=== PATIENT | female | born 1985 | race Caucasian/White ===

== ENCOUNTER → 2021-06-10 | Outpatient (CLI) | payer BC ==
--- NOTE | 2021-06-10 14:29 | Diagnostic Imaging Report ---
INDICATION: Anatomy survey. TECHNIQUE: Multiple real-time grayscale images were obtained over the gravid uterus. COMPARISON: None FINDINGS: CLINICAL DATES: Gestational age 20 weeks, 3 days, with an TIANNA of 10/25/2021 Number: Single live intrauterine Presentation: Transverse Placenta: Anterior. There is partial placental previa. Amniotic Fluid: MORA is visually within normal limits. However, no measurements were provided in regards the amniotic fluid. Heart Rate: 134 bpm Cerebellum: visualized Lateral ventricles: visualized Cavum septum pellucidum: visualized Nasal Bone: Not well visualized Face: Not well visualized Stomach: visualized Kidneys: visualized Bladder: visualized Three vessel cord: visualized Cord insertion: visualized 4 chamber heart: visualized outflow tracts: Not visualized Spine, upper: Not well visualized Spine, lower: Not well visualized Upper extremities: visualized Lower extremities: visualized Hands: Visualized, however not all fingers are well seen. Feet: Visualized, however not all toes are well seen. The cervical length measures 10 cm without evidence of funneling. Biometrical measurements are as follows: Biparietal 4.85 cm, age 20 weeks 5 days. Head circumference 18.21 cm, age 20 weeks 5 days. Abdominal circumference 14.65 cm, age 20 weeks 0 days. Femur length 3.42 cm, age 20 weeks 6 days. Sonographic estimate age: 20 weeks 4 days. Sonographic estimated date of delivery: 10/24/2021. Estimated Weight: 349 gm (+/- 51 gm). LMP percentile: 41%. IMPRESSION: 1. Single live intrauterine at approximately 20 weeks, 4 days, with an TIANNA of 10/24/2021. These are within range clinical dates. 2. The face, nasal bone, spine, and outflow tracts are not well visualized due to position. The remainder of the anatomy is seen and has a normal appearance. Recommend follow-up as indicated. 3. Low-lying placenta with partial placental previa. Recommend attention on follow-up. Dictated by: Dictated on workstation # [id number]
== END ==
LOC: RAD 12:52
PROVIDERS: ATTEND Obstetrics & Gynecology
DX: O44.22 Partial placenta previa NOS or without hemorrhage, second trimester (principal); Z3A.20 20 weeks gestation of pregnancy
CPT/HCPCS: 76805

== ENCOUNTER 2021-10-22 02:49 | Inpatient (IN) | payer BC ==
[2021-10-22] VITALS (49 sets, daily range): BP systolic 92–164; BP diastolic 52–121
[~2021-10-22] VITALS: Ht 177.8 cm; Wt 133.4 kg
--- NOTE | 2021-10-22 07:35 | History & Physical-OB ---
OB - Chief Complaint & HPI Date/Time Date of Admission: Date of Admission: Oct 22, 2021 at 06:32 Date seen by a Provider: Oct 22, 2021 Time Seen by a Provider: 07:30 Chief Complaint/History OB-Reason for Admission/Chief: Induction of Labor Hx : 4 Hx Para: 3 Expected Date of Delivery: Oct 25, 2021 Gestational Age in Weeks: 39 Gestational Age in Days: 4 Admission Nurse Assessment Rev: Yes Allergies and Home Medications Patient Home Medication List Home Medication List Reviewed: Yes OB - History Hx of Present Care: Yes Ultrasounds: Normal mid trimester US Obstetrical Complications: None Medical Complications: None Patient Past Medical History n/a OB - Admission Exam Physical Exam HEENT: NCAT Heart: Rhythm Normal Lungs: Clear Abdomen: Gravid Extremities: Normal Reflexes: Normal Cervical Dilatation: 3cm Effacement: 75% Station: -1 Membranes: Intact Heart Rate: 130's Accelerations: Accelerations Present Decelerations: No Decelerations Short Term Variability: Present Usp Variability: Average (6-25) Contractions on Admission: 6-10 Minutes Apart Intensity: Mild Shields Scoring Tool (Modified) Dilation (cm): 3-4cm (2) Effacement (%): 51-79% (2) Descent/Station: -1,0 (2) Cervix Consistency: Soft (2) Cervix Position: Anterior (2) Add 1 point for: Each previous vaginal delivery (1) Shields Score: 11 OB - Assessment/Plan/Diagnosis Assessment Assessment: induction of labor Admission Dx 36 yo @ 39 weeks Elective IOL AMA TOLAC GBS neg Admission Status: Inpatient Order (span 2 midnights) Reason for Inpatient Admission: IOL at 39 weeks Plan Induction Method: DONATO ONEIL DO Oct 22, 2021 07:35
[2021-10-22] MEDS ORDERED: OXYTOCIN PRE-MIX DRIP 500 ML IV SCH ×3 (07:45→18:00)
[2021-10-22 08:25] LABS: BASOPHILS % (AUTO) 1 % (0-10); EOSINOPHILS % (AUTO) 0 % (0-10); HEMATOCRIT 36 % (35-52); HEMOGLOBIN 12.3 g/dL (11.5-16.0); LYMPHOCYTES # (AUTO) 0.7 10^3/uL (1.0-4.0); LYMPHOCYTES % (AUTO) 8 % (12-44); MEAN CORPUSCULAR HEMOGLOBIN 33 pg (25-34); MEAN CORPUSCULAR HGB CONC 34 g/dL (32-36); MEAN CORPUSCULAR VOLUME 95 fL (80-99); MEAN PLATELET VOLUME 11.2 fL (9.0-12.2); MONOCYTES # (AUTO) 0.8 10^3/uL (0.0-1.0); MONOCYTES % (AUTO) 10 % (0-12); NEUTROPHILS # (AUTO) 6.6 10^3/uL (1.8-7.8); NEUTROPHILS % (AUTO) 80 % (42-75); PLATELET COUNT 227 10^3/uL (130-400); WHITE BLOOD COUNT 8.3 10^3/uL (4.3-11.0)
[2021-10-22] MEDS ORDERED: D5 LR IV SOLUTION 1,000 ML IV SCH (08:30)
[2021-10-22] MEDS ORDERED: fentaNYL 2 mcg/ml BUPIVA 0.125 100 ML ONE (08:41)
[2021-10-22] MEDS ORDERED: D5 LR IV SOLUTION 1,000 ML IV ONE (08:41)
[2021-10-22] MEDS: EPIDURAL (fentaNYL 2 MCG/ML BUPIVA 0.125%)100 ML BAG EPI SCH ×2 (09:05→16:19)
[2021-10-22] MEDS ORDERED: ONDANSETRON 4 MG/2 ML (SDV) Z0FRAN IV PRN (09:15)
[2021-10-22] MEDS ORDERED: NALOXONE 0.4 MG/ML 1 ML (NARCAN) VIAL IV PRN ×3 (09:15→18:00)
[2021-10-22] MEDS ORDERED: METOCLOPRAMIDE INJ 10 MG/2 ML (REGLAN) IV PRN (09:15)
[2021-10-22] MEDS ORDERED: LACTATED RINGERS 1,000 ML IV SCH (09:15)
[2021-10-22] MEDS ORDERED: diphenhydrAMINE 50 MG/ML INJ (BENADRYL) IV PRN (09:15)
[2021-10-22] MEDS ORDERED: CATHETER FLUSH 10 ML SYR IV SCH ×2 (14:00→22:00)
--- NOTE | 2021-10-22 17:56 | OB Labor & Delivery Record ---
L&D History Date of Service Date of Service: Oct 22, 2021 History Expected Date of Delivery: Oct 25, 2021 Gestational Age in Weeks: 39 Hx : 4 Hx Para: 3 Complications Events: Routine care Operative Indications (Cesarea: N/A-Vaginal Delivery Intrapartal Events: None, Ineffective Pushing L&D Stage1 Stage One Onset of Labor - Date: Oct 22, 2021 Monitors and Tracing Monitor Mode: External Heart Rate: 135 Monitor Accelerations: Uniform Monitor Decelerations: Variable Station: -2 Snf Variability: Average (6-10) Short Term Variability: Present Presentation: Vertex Vital Signs VS - Last 72 Hours, by Label 10/22/21 10/22/21 10/22/21 10/22/21 07:08 08:00 08:15 08:30 Temp 36.8 Pulse 120 96 96 96 Resp 18 18 18 18 B/P (MAP) 135/77 (96) 124/69 (87) 111/74 (86) Pulse Ox 96 O2 Delivery Room Air Room Air Room Air Room Air 10/22/21 10/22/21 10/22/21 10/22/21 08:45 08:55 09:00 09:05 Pulse 105 106 83 87 Resp 18 18 18 18 B/P (MAP) 122/77 (92) 132/92 (105) 114/62 (79) 115/71 (86) Pulse Ox 99 99 97 O2 Delivery Room Air Room Air Room Air Room Air 10/22/21 10/22/21 10/22/21 10/22/21 09:15 09:20 09:30 09:35 Pulse 82 91 63 83 Resp 18 18 18 18 B/P (MAP) 92/52 (65) 100/63 (75) 154/121 (132) 110/61 (77) Pulse Ox 96 99 95 98 O2 Delivery Room Air Room Air Room Air Room Air 10/22/21 10/22/21 10/22/21 10/22/21 09:40 09:45 10:00 10:15 Pulse 88 80 94 93 Resp 18 18 18 18 B/P (MAP) 101/59 (73) 105/61 (76) 110/69 (83) Pulse Ox 97 97 98 99 O2 Delivery Room Air Room Air Room Air Room Air 10/22/21 10/22/21 10/22/2110/22/22 10:30 10:45 11:00 11:15 Pulse 87 85 98 90 Resp 18 18 18 18 B/P (MAP) 112/74 (87) 124/74 (91) 129/78 (95) 119/78 (92) Pulse Ox 97 97 97 98 O2 Delivery Room Air Room Air Room Air Room Air 10/22/21 10/22/21 10/22/21 10/22/21 11:30 11:45 12:00 12:03 Temp 36.9 Pulse 93 101 96 Resp 18 18 18 B/P (MAP) 124/59 (80) 134/70 (91) 117/61 (79) Pulse Ox 97 99 98 O2 Delivery Room Air Room Air Room Air 10/22/21 10/22/21 10/22/21 10/22/21 12:15 12:30 12:45 13:00 Pulse 107 112 110 104 Resp 18 18 18 18 B/P (MAP) 115/72 (86) 119/72 (88) 109/63 (78) 107/70 (82) Pulse Ox 99 99 97 97 O2 Delivery Room Air Room Air Room Air Room Air 10/22/21 10/22/21 10/22/21 10/22/21 13:15 13:30 13:45 14:00 Pulse 112 95 104 103 Resp 18 18 18 18 B/P (MAP) 106/60 (75) 127/80 (96) 109/72 (84) 114/76 (89) Pulse Ox 97 98 99 99 O2 Delivery Room Air Room Air Room Air Room Air 10/22/21 10/22/21 10/22/21 10/22/21 14:15 14:30 14:45 15:00 Pulse 95 100 112 105 Resp 18 18 18 18 B/P (MAP) 127/73 (91) 129/76 (93) 131/93 (106) 133/83 (100) Pulse Ox 99 98 98 98 O2 Delivery Room Air Room Air Room Air Room Air 10/22/21 10/22/21 10/22/21 10/22/21 15:15 15:30 15:45 16:00 Pulse 95 108 122 112 Resp 18 18 18 18 B/P (MAP) 132/81 (98) 147/90 (109) 136/88 (104) 134/89 (104) Pulse Ox 98 97 98 O2 Delivery Room Air Room Air Room Air Room Air 10/22/21 10/22/21 16:15 16:30 Pulse 117 96 Resp 18 18 B/P (MAP) 134/89 (104) 143/92 (109) O2 Delivery Room Air Room Air Rupture of Membranes Spontaneous Ruture of Membrane: No Amniotic Membrane Rupture Time: 07 Amniotic Membrane Fluid Desc.: Clear Vaginal Bleeding Description: Normal Show Progress/Notes Patient admitted for IOL, AROM performed and pitocin augmentation used to progress patient after epidural is placed. She progressed to complete and +2 station. L&D Stage2 Stage Two Stage II Date: Oct 22, 2021 Monitors and Tracing Monitor Mode: External Heart Rate: 135 Monitor Accelerations: None Monitor Decelerations: Variable Pleater Hand Variability: Average (6-10) Short Term Variability: Present Position: Right Occiput Anterior Presentation: Vertex Cord Descript/Complications Cord Vessel Description: 3 Vessels Complications Due to no change in station of +3 after 30 min of pushing, low vacuum extraction done. Kiwi cup placed over flexion point on head, with next push 50 mmHg applied using handpiece. And gentle extension of the head guided with the vacuum, over intact perineum where the vacuum suction is released. Delivery Type Infant Delivery Method: Low Vacuum Extraction Anterior Shoulder: Right Episiotomy/Perineal Laceration Laceraction(s)/Extensions: No Condition of Infant Delivery 1 minute Comment: 8 5 minute Comment: 9 Notes Live male weight pending. Condition of Infant Condition of : Living Exam: No Observed Abnormalities Resuscitation Resuscitation: N/A - Spontaneous Resp L&D Stage3 Stage Three Stage III Date: Oct 22, 2021 Pictocin Pitocin Administration mu/min: 14 Pitocin ml/hr: 14 Pitocin Administration Comment: 30 mu wide open after delivery of placenta Placenta Delivery Placenta Delivery: Spontaneous Delivery Summary Summary Estimated blood loss (mL): 250 Attending at delivery: Donato Zhang DO Condition of Delivery Examined: Cervix Examined, Uterus Explored Post Hemorrhage: No Condition of Mother stable Condition of Infant (s) stable DONATO ZHANG DO Oct 22, 2021 17:56
--- NOTE | 2021-10-22 17:57 | Discharge Inst-Women's Service ---
Discharge Inst-Women's Serv Depart Medication/Instructions New, Converted or Re-Newed RX: Transmitted to Pharmacy Final Diagnosis PPD 2 VAVD Problems Reviewed?: Yes Consults/Follow Up Additional Follow Up: Yes Orders/Referrals Dr. Zhang in 6 weeks Activity Activity: Activity as Tolerated Driving Instructions: No Driving for 1 Week NO SMOKING: NO SMOKING Nothing Inside Vagina: No Douching, No [place], No Tampons Diet Discharge Diet: No Restrictions Symptoms to Report to : Bleeding Excessive, Pain Increased, Fever Over 101 Degrees F, Vaginal Bleeding Increase, Questions/Concerns For Any Problems or Questions: Contact Your Physician DONATO ZHANG DO Oct 22, 2021 17:57
[2021-10-22] MEDS ORDERED: ACHD5005 PO (17:58)
[2021-10-22] MEDS ORDERED: DOCU100C37 PO (17:58)
[2021-10-22] MEDS ORDERED: IBUP-844 PO (17:58)
[2021-10-22] MEDS ORDERED: DIBUCAINE 1% OINTMENT 30 GM TUBE TOP PRN (18:00)
[2021-10-22] MEDS ORDERED: MEASLES,MUMPS,RUBELLA 1 EA INJ SQ ONE (18:00)
[2021-10-22] MEDS ORDERED: HYDROcodone/APAP 5 MG/325 MG (LORTAB) TAB PO PRN (18:00)
[2021-10-22] MEDS ORDERED: TETANUS,DIPTH,PERTUSS P/F (BOOSTRIX) 0.5 ML VIAL IM ONE (18:00)
[2021-10-22] MEDS ORDERED: BENZOCAINE/MENTHOL (DERMOPLAST) 56 ML CAN TP PRN (18:00)
[2021-10-22] MEDS ORDERED: WITCH HAZEL(TUCKS) 40 EA JAR TOP PRN (18:00)
[2021-10-22] MEDS: IBUPROFEN 600 MG (MOTRIN) TAB PO SCH (20:52)
[2021-10-22] MEDS: DOCUSATE SODIUM 100 MG (COLACE) CAP PO SCH (20:52)
[2021-10-23 00:10] VITALS: BP 107/62
[2021-10-23 04:11] VITALS: BP 117/59
[2021-10-23] MEDS: IBUPROFEN 600 MG (MOTRIN) TAB PO SCH ×3 (04:11→14:29)
[2021-10-23 06:16] LABS: BASOPHILS # (AUTO) 0.1 10^3/uL (0.0-0.1); BASOPHILS % (AUTO) 1 % (0-10); EOSINOPHILS % (AUTO) 0 % (0-10); HEMATOCRIT 34 % (35-52); HEMOGLOBIN 11.4 g/dL (11.5-16.0); LYMPHOCYTES # (AUTO) 1.5 10^3/uL (1.0-4.0); LYMPHOCYTES % (AUTO) 14 % (12-44); MEAN CORPUSCULAR HEMOGLOBIN 32 pg (25-34); MEAN CORPUSCULAR HGB CONC 33 g/dL (32-36); MEAN CORPUSCULAR VOLUME 97 fL (80-99); MEAN PLATELET VOLUME 11.1 fL (9.0-12.2); MONOCYTES # (AUTO) 0.8 10^3/uL (0.0-1.0); MONOCYTES % (AUTO) 7 % (0-12); NEUTROPHILS # (AUTO) 8.4 10^3/uL (1.8-7.8); NEUTROPHILS % (AUTO) 77 % (42-75); PLATELET COUNT 202 10^3/uL (130-400); WHITE BLOOD COUNT 10.8 10^3/uL (4.3-11.0)
[2021-10-23] MEDS ORDERED: PRENATAL VITAMIN 1 EA TAB PO SCH (07:00)
--- NOTE | 2021-10-23 08:58 | Anesthesia-Regional Post-Op ---
Regional Patient Condition Mental Status: Alert, Oriented x3 Circulation: Same as Pre-Op Headache: Absent Sensation: Full Recovery Motor Block: Absent Post Op Complications Complications None Follow Up Care/Instructions Patient Instructions None needed. Anesthesia/Patient Condition Patient is doing well, no complaints, stable vital signs, no apparent adverse anesthesia problems. No complications reported per nursing. DAVI STEPHENSON CRNA Oct 23, 2021 08:58
[2021-10-23] MEDS ORDERED: FERROUS SULF 325 MG (IRON) TAB PO SCH (09:00)
[2021-10-23] MEDS: DOCUSATE SODIUM 100 MG (COLACE) CAP PO SCH (09:20)
[2021-10-23 09:30] VITALS: BP 115/67
--- NOTE | 2021-10-23 11:51 | Postpartum Progress Note ---
Note Note Day # 1 Subjective: Patient is without complaints. Ambulating, voiding. Tolerating a regular diet without nausea or vomiting. Normal lochia. Pain is well controlled with oral pain medications. Breast feeding. Patient would like to be discharged to home this evening. Objective: Physical Exam: General - Alert and oriented, no apparent distress Abdomen - Soft, appropriately tender to palpation, non-distended, fundus firm at umbilicus Extremities - no edema, negative Celestina's bilaterally Assessment: Post- day # 1, status post . Recovering well, hemodynamically stable Acute blood loss anemia Plan: Routine care. Encourage breast feeding. Encourage ambulation. Ferrous sulfate supplementation. Plan for discharge this evening, pending baby's DC Vitals - Labs Vital Signs - I&O Vital Signs Date Time Temp Pulse Resp B/P (MAP) Pulse Ox O2 Delivery O2 Flow Rate FiO2 10/23/21 09:30 36.4 89 18 115/67 (83) 89 Room Air 10/23/21 04:11 36.4 78 18 117/59 (78) 98 Room Air 10/23/21 00:10 36.4 80 18 107/62 (77) 98 Room Air 10/22/21 20:30 36.8 99 18 140/65 (90) 98 Room Air 10/22/21 18:30 100 18 136/71 (92) Room Air 10/22/21 18:15 37.1 86 18 133/82 (99) Room Air 10/22/21 18:00 102 18 146/81 (102) Room Air 10/22/21 17:45 96 18 128/78 (95) Room Air 10/22/21 17:30 114 18 136/83 (100) Room Air 10/22/21 17:15 110 18 164/74 (104) Room Air 10/22/21 17:00 118 18 129/83 (98) Room Air 10/22/21 16:45 97 18 137/89 (105) Room Air 10/22/21 16:30 96 18 143/92 (109) Room Air 10/22/21 16:15 117 18 134/89 (104) Room Air 10/22/21 16:00 112 18 134/89 (104) Room Air 10/22/21 15:45 122 18 136/88 (104) 98 Room Air 10/22/21 15:30 108 18 147/90 (109) 97 Room Air 10/22/21 15:15 95 18 132/81 (98) 98 Room Air 10/22/21 15:00 105 18 133/83 (100) 98 Room Air 10/22/21 14:45 112 18 131/93 (106) 98 Room Air 10/22/21 14:30 100 18 129/76 (93) 98 Room Air 10/22/21 14:15 95 18 127/73 (91) 99 Room Air 10/22/21 14:00 103 18 114/76 (89) 99 Room Air 10/22/21 13:45 104 18 109/72 (84) 99 Room Air 10/22/21 13:30 95 18 127/80 (96) 98 Room Air 10/22/21 13:15 112 18 106/60 (75) 97 Room Air 10/22/21 13:00 104 18 107/70 (82) 97 Room Air 10/22/21 12:45 110 18 109/63 (78) 97 Room Air 10/22/21 12:30 112 18 119/72 (88) 99 Room Air 10/22/21 12:15 107 18 115/72 (86) 99 Room Air 10/22/21 12:03 36.9 10/22/21 12:00 96 18 117/61 (79) 98 Room Air I & O 10/23/21 07:00 Intake Total 1000 ml Balance 1000 ml Labs Laboratory Tests 10/23/21 05:58: White Blood Count 10.8, Red Blood Count 3.55L, Hemoglobin 11.4L, Hematocrit 34L, Mean Corpuscular Volume 97, Mean Corpuscular Hemoglobin 32, Mean Corpuscular Hem oglobin Concent 33, Red Cell Distribution Width 12.8, Platelet Count 202, Mean Platelet Volume 11.1, Immature Granulocyte % (Auto) 1, Neutrophils (%) (Auto) 77H, Lymphocytes (%) (Auto) 14, Monocytes (%) (Auto) 7, Eosinophils (%) (Auto) 0, Basophils (%) (Auto) 1, Neutrophils # (Auto) 8.4H, Lymphocytes # (Auto) 1.5, Monocytes # (Auto) 0.8, Eosinophils # (Auto) 0.0, Basophils # (Auto) 0.1, Immature Granulocyte # (Auto) 0.1 LIYA CASTRO APRN Oct 23, 2021 11:51
[2021-10-23 14:30] VITALS: BP 123/82
== END 2021-10-23 19:45 | disposition home or self-care (01) | DRG 806 ==
LOC: LDRP 06:32
PROVIDERS: ADMIT Obstetrics & Gynecology; ATTEND Obstetrics & Gynecology
PROC: 10D07Z6 Extraction of Products of Conception, Vacuum, Via Natural or Artificial Opening (ICD-10-PCS; principal; 2021-10-22)
PROC: 10907ZC Drainage of Amniotic Fluid, Therapeutic from Products of Conception, Via Natural or Artificial Opening (ICD-10-PCS; 2021-10-22)
DX: O34.211 Maternal care for low transverse scar from previous cesarean delivery (principal); D62 Acute posthemorrhagic anemia; Z37.0 Single live birth; O90.81 Anemia of the puerperium; Z3A.39 39 weeks gestation of pregnancy
CPT/HCPCS: 36415; 85025; 86850; 86900; 86901